=== PATIENT | female | born 1985 | race Caucasian/White ===

== ENCOUNTER 2017-07-07 20:51 | Observation (INO) | payer OTHER ==
[2017-07-08] MEDS ORDERED: Betamethasone Acetate/Betamethasone Sod Phosphate 30 MG/5 ML MDV IM ONE (00:46)
--- NOTE | 2017-07-08 14:33 | PCM.SN ---
- Free Text/Narrative Note: at 24.5 weeks gestation admitted last night for vaginal bleeding. Denies any bright red bleeding over night, just has brownish discharge on wiping. No abdominal pain or cramps. Reports movements. Normal CBC( elevated WBC due to steroids) and coagulation profile. Stable VS Abdomen: soft, non- tender gravid uterus FHR: 130's reassuring [place]: No uterine activity visualized Assessment/Plan: 24.5 weeks, vaginal bleeding, none overnight and no contractions. Has received Ist dose of steroid, eager to go home. -Discharge instructions reviewed- Pelvic rest, PTL precautions discussed. Patient would return this evening for 2nd dose of her steroids I will arrrange for a follow up appointment for her within the week at [facility]. Patient verbalized understanding
--- NOTE | 2017-07-09 19:53 | US ---
EXAM DATE: 07/08/17 PATIENT'S AGE: 32 Patient: CULLEN SALDIVAR Facility: [place], [place] Site . Site : 1985 Study: US OB Pelvis [id number] 11:17:02 PM Ordering Physician: Jenny Montano Final Report: INDICATION: vaginal bleeding TECHNIQUE: Limited OB ultrasound. COMPARISON : None FINDINGS/IMPRESSION : Single live intrauterine with cardiac activity recorded at 139 beats per minute. The fetus is in cephalic presentation. The placenta is posterior in location. Subjectively there is a normal amount of amniotic fluid. There is funneling of the internal cervical os with complex fluid which likely represents blood products. The cervical length measures 2.2 cm. Dictated by Cesar Pratt MD @ 07/07/2017 11:40:54 PM Dictated by: Cesar Pratt MD @ 07/07/2017 23:41:11 (Electronic Signature) Report Signed by Proxy. LAURIE
--- NOTE | 2017-07-09 19:53 | US ---
EXAM DATE: 07/08/17 PATIENT'S AGE: 32 Patient: CULLEN SALDIVAR Facility: [place], [place] Site . Site : 1985 Study: US OB Pelvis [id number] 11:17:02 PM Ordering Physician: Jenny Montano Final Report: INDICATION: vaginal bleeding TECHNIQUE: Limited OB ultrasound. COMPARISON : None FINDINGS/IMPRESSION : Single live intrauterine with cardiac activity recorded at 139 beats per minute. The fetus is in cephalic presentation. The placenta is posterior in location. Subjectively there is a normal amount of amniotic fluid. There is funneling of the internal cervical os with complex fluid which likely represents blood products. The cervical length measures 2.2 cm. Dictated by Cesar Pratt MD @ 07/07/2017 11:40:54 PM Dictated by: Cesar Pratt MD @ 07/07/2017 23:41:11 (Electronic Signature) Report Signed by Proxy. LAURIE
== END 2017-07-08 13:55 | disposition home or self-care (01) ==
LOC: MW.OBCHECK 20:51 → MW.OB 20:52 → MW.OBCHECK 07-08 00:47 → MW.OB 07-08 00:47
PROVIDERS: ADMIT Obstetrics & Gynecology; ATTEND Obstetrics & Gynecology
DX: O46.92 Antepartum hemorrhage, unspecified, second trimester (principal); Z3A.24 24 weeks gestation of pregnancy
CPT/HCPCS: 36415; 59025; 76815; 76817; 81003; 85025; 85610; 85730; 87480; 87510; 87660; J0702; 96375; G0378

== ENCOUNTER 2017-10-11 04:37 | Inpatient (IN) | payer OTHER ==
[2017-10-11] MEDS ORDERED: Butorphanol 1 MG/ML SDV IVPUSH PRN (04:50)
[2017-10-11] MEDS ORDERED: Misoprostol 200 MCG Tab PO PRN (04:50)
[2017-10-11] MEDS ORDERED: Sodium Chloride 0.9% 2.5 ML Syringe FLUSH PRN (04:50)
[2017-10-11] MEDS ORDERED: Sodium Chloride 0.9% 10 ML Syringe FLUSH PRN (04:50)
[2017-10-11] MEDS ORDERED: Water For Irrigation,Sterile 1,000 ML Container IRR PRN (04:50)
[2017-10-11] MEDS ORDERED: Tranexamic Acid 1,000 MG in Sodium Chloride 0.9% 100 ML IV PRN (04:50)
[2017-10-11] MEDS ORDERED: Nalbuphine 10 MG/1 ML Vial IVPUSH PRN (04:50)
[2017-10-11] MEDS ORDERED: Carboprost Tromethamine 250 MCG/1 ML Amp IM PRN (04:50)
[2017-10-11] MEDS ORDERED: Lidocaine 1% 50 ML MDV INJECT PRN (04:50)
[2017-10-11] MEDS ORDERED: Methylergonovine 0.2 MG/1 ML Amp IM PRN (04:50)
[2017-10-11] MEDS ORDERED: Oxytocin/0.9 % Sodium Chloride 30 UNIT/500 ML BAG IV SCH (05:00)
[2017-10-11] MEDS ORDERED: Lactated Ringers 1,000 ML IV SCH (05:00)
[2017-10-11] MEDS ORDERED: Ibuprofen 400 MG Tab PO PRN (05:46)
[2017-10-11] MEDS ORDERED: Lanolin 100% Cream 7 GM Tube TOP PRN (05:46)
[2017-10-11] MEDS ORDERED: Aluminum Hydroxide/Magnesium Hydroxide/Simethicone Susp 30 ML Cup PO PRN (05:46)
[2017-10-11] MEDS ORDERED: Ibuprofen 800 MG Tab PO PRN (05:46)
[2017-10-11] MEDS ORDERED: Benzocaine/Menthol 20%-0.5% Spray 78 GM Cannister TOP PRN (05:46)
[2017-10-11] MEDS ORDERED: Witch Hazel Medicated Pads 40/Jar TOP PRN (05:46)
[2017-10-11] MEDS ORDERED: oxyCODONE 5 MG Tab PO PRN (05:46)
[2017-10-11] MEDS ORDERED: Bisacodyl 10 MG Supp RECTAL PRN (05:46)
[2017-10-11] MEDS ORDERED: Acetaminophen 500 MG Tab PO PRN ×2 (05:46)
[2017-10-11] MEDS ORDERED: Docusate Sodium 100 MG Cap PO PRN (05:46)
--- NOTE | 2017-10-11 12:32 | OR ---
SURGEON: Nataly Yancey M.D. DATE OF PROCEDURE: 10/11/2017 PREOPERATIVE DIAGNOSES: 1. 38 and 2 weeks intrauterine . 2. Active labor. 3. Type 1 gestational diabetes. POSTOPERATIVE DIAGNOSES: 1. 38 and 2 weeks intrauterine . 2. Active labor. 3. Type 1 gestational diabetes. PROCEDURE: Spontaneous vaginal delivery, first-degree midline laceration repair. ANESTHESIA: Local. ESTIMATED BLOOD LOSS: 250 mL. COMPLICATIONS: None. FINDINGS: Viable male, score 9 at 1 minute, 9 at 5 minutes. Weight 7 pounds 1 ounce. Spontaneous delivery of intact placenta, 3-vessel cord. DISPOSITION: Infant nursery, mom in LDRP. PROCEDURE IN DETAIL: Carola is a 32-year-old, G3, P2-0-0-2 at 38 and 2 weeks gestation, who presents on the early childhood assistant of 10/11/2017, with regular contractions since 2:30 a.m. On initial examination, she is found to be 9 cm, quickly progressed to complete. I was called for delivery. Upon my arrival, the patient was placed in modified dorsal lithotomy position. She had requested epidural, however, she simply progressing too quickly. On examination, she is found to be complete, 100% effaced, +1 station and bulging bag. Amniotomy was performed, clear fluid was returned. The patient easily pushed with the next contraction and was able to deliver infant's head atraumatically, spontaneously, followed by anterior shoulder, posterior shoulder, remainder of the body. 's oropharynx and nares bulb suctioned. Cord clamped x2 and cut. Infant was handed off to his mother, attending nursing staff side. Cord arterial, cord venous, cord blood sampling obtained. Light suprapubic pressure was applied while the placenta was delivered spontaneously intact. Vigorous fundal uterine massage was applied while 30 units Pitocin was delivered in 5 mL of IV fluid. Upon inspection of cervix, vaginal sidewalls, perineum, these were found to be intact other than a first-degree midline laceration which was repaired using 3-0 Vicryl after prepping the region with approximately 8 mL 1% lidocaine. The patient tolerated the repair well. Hemostasis remained evident. Sponge count and needle counts correct. The patient remained in LDRP and in nursery. LOGAN / MERA /[id number]
--- NOTE | 2017-10-12 07:05 | PCM.PNPP ---
<Bronwyn Salinas - Last Filed: 10/12/17 07:11> - General Info Date of Service: 10/12/17 Admission Dx/Problem (Free Text): Subjective Update: Patient is a 32 year old PPD1 from with 1st MLL. Patient offers no complaints. Functional Status: Reports: Pain Controlled, Tolerating Diet, Ambulating, Urinating - Review of Systems General: Denies: Fever, Chills HEENT: Denies: Headaches, Visual Changes Pulmonary: Denies: Shortness of Breath, Pleuritic Chest Pain, Cough Cardiovascular: Denies: Chest Pain, Edema Gastrointestinal: Denies: Constipation, Diarrhea, Nausea, Vomiting Genitourinary: Denies: Dysuria, Frequency, Burning Musculoskeletal: Denies: Leg Pain Neurological: Denies: Dizziness, Headache - General Info Date of Service: 10/12/17 - Patient Data Vital Signs - Most Recent: Last Vital Signs Temp 37.1 C 10/12/17 04:00 Pulse 90 10/12/17 04:00 Resp 18 10/12/17 04:00 BP 105/77 10/12/17 04:00 Pulse Ox 97 10/12/17 04:00 Weight - Most Recent: 97.069 kg Lab Results - Last 24 Hours: Laboratory Results - last 24 hr 10/11/17 10/11/17 Range/Units 05:20 15:08 Hgb 10.9 L (12.0-16.0) g/dL Hct 33.9 L (36.0-46.0) % Cord ABG pH 7.277 (7.18-7.38) Cord ABG Base Excess -4 (-10--2) Cord VBG pH 7.375 (7.25-7.45) Cord VBG Base Excess -6 (-10--2) Med Orders - Current: Current Medications Acetaminophen (Tylenol Extra Strength) 500 mg PO Q4H PRN PRN Reason: Pain Acetaminophen (Tylenol Extra Strength) 1,000 mg PO Q4H PRN PRN Reason: Pain Al Hydroxide/Mg Hydroxide (Mag-Al Plus) 30 ml PO Q8H PRN PRN Reason: Heartburn Benzocaine/Menthol (Dermoplast Pain Relief 20%-0.5% [place]) 78 gm TOP ASDIRECTED PRN PRN Reason: Perineal Comfort Measure Bisacodyl (Dulcolax) 10 mg RECTAL ONETIME PRN PRN Reason: Constipation Carboprost Tromethamine (Hemabate Ds) 250 mcg IM ASDIRECTED PRN PRN Reason: Post Hemorrhage Docusate Sodium (Colace) 100 mg PO BID PRN PRN Reason: Constipation Last Admin: 10/11/17 20:32 Dose: 100 mg Emollient Ointment (Lansinoh Hpa) 0 gm TOP ASDIRECTED PRN PRN Reason: Sore Nipples Lactated Ringer's (Ringers, Lactated) 1,000 mls @ 150 mls/hr IV ASDIRECTED [facility] Last Admin: 10/11/17 05:02 Dose: 150 mls/hr Oxytocin/Sodium Chloride (Oxytocin 30 Unit/500 Ml-Ns) 30 unit in 500 mls @ 999 mls/hr IV TITRATE [facility] Last Admin: 10/11/17 05:20 Dose: 999 mls/hr Tranexamic Acid 1,000 mg/ (Sodium Chloride) 110 mls @ 660 mls/hr IV ONETIME PRN PRN Reason: Bleeding Ibuprofen (Motrin) 400 mg PO Q4H PRN PRN Reason: Pain Ibuprofen (Motrin) 800 mg PO Q6H PRN PRN Reason: Pain Lidocaine HCl (Xylocaine 1%) 50 ml INJECT ONETIME PRN PRN Reason: Laceration repair Last Admin: 10/11/17 05:20 Dose: 50 ml Methylergonovine Maleate (Methergine) 0.2 mg IM ASDIRECTED PRN PRN Reason: Post Hemorrhage Nalbuphine HCl (Nubain) 10 mg IVPUSH Q1H PRN PRN Reason: Pain (severe 7-10) Oxycodone HCl (Oxycodone) 5 mg PO Q2H PRN PRN Reason: Pain Sodium Chloride (Saline Flush) 10 ml FLUSH ASDIRECTED PRN PRN Reason: Keep Vein Open Sodium Chloride (Saline Flush) 2.5 ml FLUSH ASDIRECTED PRN PRN Reason: Keep Vein Open Witch Estelita (Tucks) 1 pad TOP ASDIRECTED PRN PRN Reason: comfort care Discontinued Medications Butorphanol Tartrate (Stadol) 1 mg IVPUSH Q1H PRN PRN Reason: Pain Misoprostol (Cytotec) 200 mcg PO ONETIME PRN PRN Reason: Post Hemorrhage Sterile Water (Sterile Water For Irrigation) 1,000 ml IRR ASDIRECTED PRN PRN Reason: delivery Last Admin: 10/11/17 05:15 Dose: 1,000 ml - Interaction Infant Disposition, : to Nursery Infant Interaction: Other (see below) ( in nursery) Infant Feeding: Breastfed Infant; Nursed Well Support Person: - Recovery Exam Fundal Tone: Firm Fundal Level: 2 Fingerbreadths Below Umbilicus Fundal Placement: Midline Lochia Amount: Small Lochia Color: Rubra/Red Perineum Description: Intact, Minimal Bruising/Swelling Episiotomy/Laceration: Approximated Bladder Status: Voiding Urinary Elimination: Voided - Exam General: Alert, Oriented, No Acute Distress HEENT: Pupils Equal, Pupils Reactive Lungs: Clear to Auscultation, Normal Respiratory Effort. No: Crackles Cardiovascular: Regular Rate, Regular Rhythm, No Murmurs GI/Abdominal Exam: Normal Bowel Sounds, Soft, Non-Tender, No Distention. No: Guarding, Rigid, Rebound Extremities: Normal Inspection, Normal Range of Motion, Non-Tender, No Pedal Edema, Normal Capillary Refill Skin: Warm, Dry, Intact Wound/Incisions: Healing Well Neurological: No New Focal Deficit Psy/Mental Status: Alert, Normal Affect, Normal Mood - Problem List Review Problem List Initiated/Reviewed/Updated: Yes - Assessment Assessment:: 32 year old PPD1 from . going well. Minimal lochia. No pain. Ready to discharge today. - Plan Plan:: Discharge today. Pain meds: tylenol, ibuprofen Followup: to clinic in 6 weeks for routine visit <Silke Ritter - Last Filed: 10/12/17 09:00> - Patient Data Vital Signs - Most Recent: Last Vital Signs Temp 36.6 C 10/12/17 08:32 Pulse 82 10/12/17 08:32 Resp 15 10/12/17 08:32 BP 123/66 10/12/17 08:32 Pulse Ox 98 10/12/17 08:32 Lab Results - Last 24 Hours: Laboratory Results - last 24 hr 10/11/17 Range/Units 15:08 Hgb 10.9 L (12.0-16.0) g/dL Hct 33.9 L (36.0-46.0) % Med Orders - Current: Current Medications Acetaminophen (Tylenol Extra Strength) 500 mg PO Q4H PRN PRN Reason: Pain Acetaminophen (Tylenol Extra Strength) 1,000 mg PO Q4H PRN PRN Reason: Pain Al Hydroxide/Mg Hydroxide (Mag-Al Plus) 30 ml PO Q8H PRN PRN Reason: Heartburn Benzocaine/Menthol (Dermoplast Pain Relief 20%-0.5% [place]) 78 gm TOP ASDIRECTED PRN PRN Reason: Perineal Comfort Measure Bisacodyl (Dulcolax) 10 mg RECTAL ONETIME PRN PRN Reason: Constipation Carboprost Tromethamine (Hemabate Ds) 250 mcg IM ASDIRECTED PRN PRN Reason: Post Hemorrhage Docusate Sodium (Colace) 100 mg PO BID PRN PRN Reason: Constipation Last Admin: 10/11/17 20:32 Dose: 100 mg Emollient Ointment (Lansinoh Hpa) 0 gm TOP ASDIRECTED PRN PRN Reason: Sore Nipples Lactated Ringer's (Ringers, Lactated) 1,000 mls @ 150 mls/hr IV ASDIRECTED [facility] Last Admin: 10/11/17 05:02 Dose: 150 mls/hr Oxytocin/Sodium Chloride (Oxytocin 30 Unit/500 Ml-Ns) 30 unit in 500 mls @ 999 mls/hr IV TITRATE [facility] Last Admin: 10/11/17 05:20 Dose: 999 mls/hr Tranexamic Acid 1,000 mg/ (Sodium Chloride) 110 mls @ 660 mls/hr IV ONETIME PRN PRN Reason: Bleeding Ibuprofen (Motrin) 400 mg PO Q4H PRN PRN Reason: Pain Ibuprofen (Motrin) 800 mg PO Q6H PRN PRN Reason: Pain Lidocaine HCl (Xylocaine 1%) 50 ml INJECT ONETIME PRN PRN Reason: Laceration repair Last Admin: 10/11/17 05:20 Dose: 50 ml Methylergonovine Maleate (Methergine) 0.2 mg IM ASDIRECTED PRN PRN Reason: Post Hemorrhage Nalbuphine HCl (Nubain) 10 mg IVPUSH Q1H PRN PRN Reason: Pain (severe 7-10) Oxycodone HCl (Oxycodone) 5 mg PO Q2H PRN PRN Reason: Pain Sodium Chloride (Saline Flush) 10 ml FLUSH ASDIRECTED PRN PRN Reason: Keep Vein Open Sodium Chloride (Saline Flush) 2.5 ml FLUSH ASDIRECTED PRN PRN Reason: Keep Vein Open Witch Estelita (Tucks) 1 pad TOP ASDIRECTED PRN PRN Reason: comfort care Discontinued Medications Butorphanol Tartrate (Stadol) 1 mg IVPUSH Q1H PRN PRN Reason: Pain Misoprostol (Cytotec) 200 mcg PO ONETIME PRN PRN Reason: Post Hemorrhage Sterile Water (Sterile Water For Irrigation) 1,000 ml IRR ASDIRECTED PRN PRN Reason: delivery Last Admin: 10/11/17 05:15 Dose: 1,000 ml - Problem List Review Problem List Initiated/Reviewed/Updated: Yes - Assessment Assessment:: patient was seen and examined by me and I agree with above, discharge instructions reviewed.
== END 2017-10-12 11:15 | disposition home or self-care (01) | DRG 775 ==
LOC: MW.OBCHECK 04:37 → MW.OB 04:38 → MW.OBCHECK 04:50 → OBSVTOIN 05:20 → MW.OB 15:13
PROVIDERS: ADMIT Obstetrics & Gynecology; ATTEND Obstetrics & Gynecology
PROC: 10E0XZZ Delivery of Products of Conception, External Approach (ICD-10-PCS; principal; 2017-10-11)
PROC: 0HQ9XZZ Repair Perineum Skin, External Approach (ICD-10-PCS; 2017-10-11)
DX: O24.429 Gestational diabetes mellitus in childbirth, unspecified control (principal); O70.0 First degree perineal laceration during delivery; Z3A.38 38 weeks gestation of pregnancy; Z37.0 Single live birth
CPT/HCPCS: 36415; 59409; 82803; 85014; 85018; 85027; 86156; 86850; 86900; 86901; A9270-GY; J2590; J7120